=== PATIENT | male | born 1945 | race Caucasian/White ===

== ENCOUNTER 2020-09-14 12:49 | Outpatient (REF) | payer MEDICARE, OTHER, SELFPAY ==
--- OUTSIDE RECORDS SUMMARY | 2020-09-14 12:57 | XMS_ITS | Encounter Summary ---
:1945 Author Organization [facility] [place] [address] Care Team Providers Name Role Phone Pcp), No Pcp (Pt Has No Primary Care Provider Unavailable Encounter Details Date Type Department Care Team Description 06/26/2016 Hospital Encounter [facility] Meme Hwang [address] [place] [address] 5622 Millermary Christensen MD 208 17 Social History Tobacco Use Types Packs/Day Years Used Date Never Assessed Sex Assigned at Date Recorded Not on file documented as of this encounter Medications at Time of Discharge Medication Sig Dispensed Refills Start Date End Date cholecalciferol (VITAMIN D3) 2,000 unit Cap 0 10/26/2009 documented as of this encounter Plan of Treatment Not on filedocumented as of this encounter Procedures Procedure Name Priority Date/Time Associated Comments Diagnosis CYTOPATHOLOGY REPORT Routine 06/26/2016 3:07 Res ults for this PM EST procedure are i n the results section. documented in this encounter Results Cytopathology Report (06/26/2016 3:07 PM EST) Cytopathology Report [facility] ? [facility] ?Patient: REJI LOUIS ? Path# [id number] ? REFERENCE ?LABORATORIES ?[facility] MR # [id number] ?Accessioned 06/26/2016 ? Cytopathology ?Birthdate: 1945 ??( Age 70) Loc: [place] ?Consult Service ?[address] [facility] nder: M ? Spec. Taken 06/26/2016 ? [place]. ? [id number] ? [facility] Physician: ?MEME RICHARDSON M.D. ??SPECIMEN INFORMATION ?Resident Pathologist: ANURAG ESPAÑA [facility] ??Specimen 1 THYROID, FINE NEEDLE ASPIRATE, LEFT LOBE : LEFT LOWER POLE ? NODULE ??4 DQ ??Floor Covering Printer Assistant: JXMartin ??8 Smears ??INTERPRETATION AND DIAGNOSIS: ??(txb) ?? 06/27/2016 @ 03:37 pm ??1) ??THYROID, FINE NEEDLE ASPIRATE, LEFT LOBE: LEFT LOWER POLE NODULE: ??LOCATION: LEFT, INFERIOR. ??TBSRTC CATEGORY: BENIGN. ??FINAL DIAGNOSIS: ADENOMATOID NODULE. ?BRIAN Rafi MENARD M.D. ??SZA* ??*Electronic signature (06/27/2016 @ 04:06 pm) by ron I attest that ?? the above diagnosis is based upon my personal exam ination of the ?? slides (and / or other material indicated in the d iagnosis), and ?? that I have reviewed and approved this report. ?(End of Report) ? printed 07/15/2018 18:22 ??Reported by: ??[facility], Cytopathology ??[address] [place] [address] ?Final Report Signed on 06/27/2016 at 04:06 pm Specimen Other Performing Organization Address City/State/[facility] Code Phon e Number [facility]ATOMIC [facility] [address] [place] [address] LABS [facility] [address] [place] [address] documented in this encounter Visit Diagnoses Not on filedocumented in this encounter
--- OUTSIDE RECORDS SUMMARY | 2020-09-14 12:57 | XMS_ITS | Encounter Summary ---
:1945 Author Organization [facility] [place] [address] Care Team Providers Name Role Phone Pcp), No Pcp (Pt Has No Primary Care Provider Unavailable Encounter Details Date Type Department Care Team Description 06/26/2016 Hospital Encounter [facility] IVISE Jose Spencer [address] [facility] [place] [address] 5622 Angela Christensen MD 208 [phone] Social History Tobacco Use Types Packs/Day Years [...] Procedure Name Priority Date/Time Associated Comments Diagnosis PARATHYROID HORMONE, Routine 06/26/2016 10:45 Res ults for this FLUID AM EST procedure are i n the results section. documented in this encounter Results Parathyroid Hormone, Fluid (06/26/2016 10:45 AM EST) Parathyroid Hormone, 5 pg/mL [facility] Fluid Comment: Reference interval is not associated with this specimen source. ??Interpret results with caution. Result Double Checked Specimen Fluid Narrative Performed At COMMENT:FINE NEEDLE ASPIRATE / NEEDLEWASH [facility] S Performing Organization Address City/State/ZIP Code Phon e Number [facility] [address] [address] [address] [address] SOFT LABS [facility] [address] Labs [address] [place] [address] documented in this encounter Visit Diagnoses Not on filedocumented in this encounter
--- OUTSIDE RECORDS SUMMARY | 2020-09-14 12:57 | XMS_ITS | Encounter Summary ---
:1945 Author Organization [facility] [place] [address] Care Team Providers Name Role Phone Pcp), No Pcp (Pt Has No Primary Care Provider Unavailable Reason for Visit Reason Comments Routine Eye Exam Encounter Details Date Type Department Care Team Description 12/12/2018 Office Visit [facility] Carin Torres, OD [address] [place] [address] [place] [phone] [facility] [phone] [place] [address] [phone] Social History Tobacco Use Types Packs/Day Years Used Date Light Tobacco Smoker Smokeless Tobacco: Never Used Sex Assigned at Date Recorded Not on file documented as of this encounter Patient Instructions Patient InstructionsCarin Walker, RADHA - 12/12/2018 10:30 AM EDT documented in this encounter Miscellaneous Notes Assessment & Plan Note - Carin Walker OD - 12/12/2018 4:49 PM EDT Associated Problem(s): Age-related nuclear cataract, bilateralNot visually significant at this time. Discussed with findings and treatment options with patient. Recommend UV protection and no smoking. Will continue to monitor yearly. ssessment & Plan Note - Carin Walker OD - 12/12/2018 4:49 PM EDTAssociated Problem(s): Myopia of both eyes with astigmatism and presbyopiaUpdated prescription for glasses. Monitor yearly or sooner if patient notice change. ssessment & Plan Note - Carin Walker, RADHA - 12/12/2018 11:05 AM EDTAssociated Problem(s): PVD (posterior vitreous detachment), both eyesMonitor yearly. Pt understands symptoms of RD. RTC carson if symptoms occur. documented in this encounter Plan of Treatment Not on filedocumented as of this encounter Visit Diagnoses Diagnosis Myopia of both eyes with astigmatism and presbyopia - Primary PVD (posterior vitreous detachment), bot h eyes Age-related nuclear cataract, bilateral documented in this encounter
--- OUTSIDE RECORDS SUMMARY | 2020-09-14 12:57 | XMS_ITS | Encounter Summary ---
:[address] [facility] [place] [address] Care Team Providers Name Role Phone Pcp), No Pcp (Pt Has No Primary Care Provider Unavailable Reason for Visit Reason Comments comprehensive exam Encounter Details Date Type Department Care Team Description 08/09/2017 Office Visit [facility] Daja Finnegan I, OD [address] DALY [facility] [address] [place] [address] [place] [address] [phone] Social History Tobacco Use Types Packs/Day Years Used Date Light Tobacco Smoker Smokeless Tobacco: Never Used Sex Assigned at Date Recorded Not on file documented as of this encounter Progress Notes Daja Hermosillo I, RADHA - 08/09/2017 9:00 AM ESTA & P: 1. 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 Pinguecula OD; recommend UV protection 3. Cat OU; not affecting ADL, monitor 4. Dermatochalasis OS, monitor documented in this encounter Plan of Treatment Not on filedocumented as of this encounter Visit Diagnoses Diagnosis Myopia of both eyes with astigmatism and presbyopia - Primary Dermatochalasis of eyelid of left eye Nuclear cataract Senile nuclear sclerosis Pinguecula of right eye documented in this encounter
--- OUTSIDE RECORDS SUMMARY | 2020-09-14 12:57 | XMS_ITS | Encounter Summary ---
:1945 Author Organization [facility] [place] [address] Care Team Providers Name Role Phone Pcp), No Pcp (Pt Has No Primary Care Provider Unavailable Reason for Visit Reason Comments Flashes/ Floaters Encounter Details Date Type Department Care Team Description 12/17/2017 Office Visit [facility] Yung Locke MD [address] [address] [facility] [phone] MD [place] 21 287 Social History Tobacco Use Types Packs/Day Years Used Date Light Tobacco Smoker Smokeless Tobacco: Never Used Sex Assigned at Date Recorded Not on file documented as of this encounter Miscellaneous Notes Assessment & Plan Note - Yung Fowler MD - 12/17/2017 3:16 PM EDT Associated Problem(s): PVD (posterior vitreous detachment), both eyesSymptomatic posterior vitreous detachment in the left eye. No concerning pathologies seen in the peripheral retina with scleral depression. Retinal detachment precautions given. Follow-up in 6 weeks. Sooner as needed. documented in this encounter Plan of Treatment Not on filedocumented as of this encounter Visit Diagnoses Diagnosis PVD (posterior vitreous detachment), lef t documented in this encounter
--- OUTSIDE RECORDS SUMMARY | 2020-09-14 12:57 | XMS_ITS | Encounter Summary ---
:[address] [facility] [place] [address] Care Team Providers Name Role Phone Pcp), No Pcp (Pt Has No Primary Care Provider Unavailable Reason for Visit Reason Comments PVD (posterior vitreous detachment), left Encounter Details Date Type Department Care Team Description 02/25/2018 Office Visit [facility] Yung Locke MD [address] [address] Medical and S[facility]i [phone] MD [place] 21 [address] Social History Tobacco Use Types Packs/Day Years Used Date Light Tobacco Smoker Smokeless Tobacco: Never Used Sex Assigned at Date Recorded Not on file documented as of this encounter Miscellaneous Notes Assessment & Plan Note - Yung Fowler MD - 02/25/2018 11:19 AM EDT Associated Problem(s): PVD (posterior vitreous detachment), both eyesStable retinal exam in his left eye with no concerning pathologies. Retinal detachment precautions give. Follow-up in 6 months. Dilate both eyes. documented in this encounter Plan of Treatment Not on filedocumented as of this encounter Visit Diagnoses Diagnosis PVD (posterior vitreous detachment), lef t documented in this encounter
--- OUTSIDE RECORDS SUMMARY | 2020-09-14 12:57 | XMS_ITS | Encounter Summary ---
:1945 Author Organization [facility] [place] [address] Care Team Providers Name Role Phone Pcp), No Pcp (Pt Has No Primary Care Provider Unavailable Reason for Visit Reason Comments PVD (posterior vitreous detachment), left Encounter Details Date Type Department Care Team Description 08/18/2018 Office Visit [facility] Yung Locke MD [address] [phone] Medical and S[facility] [phone] MD [place] 21 [address] Social History Tobacco Use Types Packs/Day Years Used Date Light Tobacco Smoker Smokeless Tobacco: Never Used Sex Assigned at Date Recorded Not on file documented as of this encounter Miscellaneous Notes Assessment & Plan Note - Yung Fowler MD - 08/18/2018 2:39 PM EST Associated Problem(s): PVD (posterior vitreous detachment), both eyesRight eye: a posterior vitreous detachment has developed since his last visit; no symptoms; unremarkable peripheral retinal exam Left eye: stable Retinal detachment precautions given Follow-up in 1 year; dilate both eyes documented in this encounter Plan of Treatment Not on filedocumented as of this encounter Visit Diagnoses Diagnosis PVD (posterior vitreous detachment), bot h eyes documented in this encounter
--- OUTSIDE RECORDS SUMMARY | 2020-09-14 12:57 | XMS_ITS | Clinical Summary ---
:1945 Author Organization [facility] [place] [address] Care Team Providers Name Role Phone Pcp), No Pcp (Pt Has No Primary Care Provider Unavailable Allergies Active Allergy Reactions Severity Noted Date Comments Penicillins 08/09/2017 Medications Medication Sig Dispensed Refills Start Date End Date Status amLODIPine (NORVASC) 10 0 06/06/2017 Active MG tablet azithromycin (ZITHROMAX) 0 08/07/2017 Active 250 MG tablet benzonatate (TESSALON 0 08/07/2017 Active PERLES) 100 MG capsule lisinopril (PRINIVIL, Take by mouth 3 07/27/2018 Active ZESTRIL) 20 MG tablet daily. aspirin 81 MG EC tablet take 1 tablet 0 Active (81MG) by oral route every day cholecalciferol (VITAMIN 0 10/26/2009 Active D3) 2,000 unit Cap Active Problems Problem Noted Date Myopia of both eyes with astigmatism and presbyopia Last Assessment & Plan: Updated prescription for glasses. Monitor yearly or sooner if patient notice change. Age-related nuclear cataract, bilateral 12/12/2018 Last Assessment & Plan: Not visually significant at this time. Discussed with findings and treatment options with patient. Recommend UV protection and no smoking. Will continue to monitor yearly. PVD (posterior vitreous detachment), both eyes 018 Overview: Symptomatic left eye 12/2017 no longer symptomatic for flashes, stabl e floaters 12/24 Last Assessment & Plan: Monitor yearly. Pt understands symptoms of RD. RTC carson if symptoms occur. Social History Tobacco Use Types Packs/Day Years Used Date Light Tobacco Smoker Smokeless Tobacco: Never Used Sex Assigned at Date Recorded Not on file Plan of Treatment Health Maintenance Due Date Last Done Comments COLOGUARD 1945 COLONOSCOPY 1945 COLORECTAL CANCER SCREENING 1947 CT COLONOGRAPHY 1945 FECAL OCCULT BLOOD TESTING 1945 HEPATITIS C SCREENING 1945 MEDICARE ANNUAL WELLNESS VISIT 1945 SIGMOIDOSCOPY 1945 DTAP/TDAP/TD VACCINES (1 - 1966 Tdap) SHINGLES VACCINATION 1997 (Shingrix) (1 of 2) ABDOMINAL AORTIC ANEURYSM 2012 (AAA) SCREEN PNEUMOCOCCAL VACCINES AGE 65+ 2012 (1 of 1 - PPSV23) INFLUENZA VACCINE (#1) 2020 04/08/2017, 05/17/2015, 05/25/2014 HEPATITIS A VACCINES Aged Out No longer e ligible based on patient's age to complete this to [facility] HEPATITIS B VACCINES Aged Out No longer e ligible based on patient's age to complete this to pic Insurance Payer Benefit Plan Subscriber ID Effective Phone Address Typ e / Group Dates MEDICARE MEDICARE A [id number] 2012-Pres [phone] [employer] Med icare AND B ent [id number] SOLUTIONS (ATTN: PART A) [address] [place] [address] COMMERCIAL [id number] Effective for Inde mnity OTHER all dates Reji Perla Personal/Family Self 1945 [address] [address] (Home) [place] [address] Advance Directives Documents on File Type Date Recorded Patient Financial Services Manager Explanati on Advance Directives-Living Will 06/18/2016 7:52 AM
--- OUTSIDE RECORDS SUMMARY | 2020-09-14 12:58 | XMS_ITS | Encounter Summary ---
:1945 Author Organization [facility] [place] [address] Care Team Providers Name Role Phone Pcp), No Pcp (Pt Has No Primary Care Provider Unavailable Reason for Referral Nuclear Medicine (Routine) Status Reason Specialty Diagnoses / Procedures Referred By Lauren hollyerred To Contact Contact Closed Specialty Radiology Diagnoses Primary hyperparathyroidism Leo, [facility] Peds Services Procedures NM Parathyroid Spect CT Jose Aguilar MD Nuc Med Required [address] [place] [address] [facility] Phone: [address] [place] [phone] [place] Fax: [phone] Reason for Visit Nuclear Medicine (Routine) Status Reason Specialty Diagnoses / Procedures Referred By Lauren eferred To Contact Contact Closed Specialty Radiology Diagnoses Primary hyperparathyroidism Jerad, [facility] Peds Services Procedures NM Parathyroid Spect CT Jose Aguilar MD Nuc Med Required [address] [facility] MD [address] [facility] Phone: [address] [place] [phone] MD [place] Encounter Details Date Type Department Care Team Description 06/18/2016 [facility] Leo, Primary Encounter Radiology - Jose Aguilar MD hyperparathyroidism Pediatric Nuc Med 56[address] Angela Christensen MD [facility] [address] [place] [phone] MD [place] [phone] (Fax) [phone] Social History Tobacco Use Types Packs/Day Years [...] encounter Procedures Procedure Name Priority Date/Time Associated Diagnosis Comme nts NM PARATHYROID Routine 06/18/2016 10:57 Primary Results f or this SPECT CT AM EST hyperparathyroidism procedur e are in the results section. documented in this encounter Results NM Parathyroid Spect CT (06/18/2016 10:57 AM EST) Specimen Impressions Performed At IMPRESSION: [facility] 1. Dual-phase Tc-99m sestamibi SPECT-CT scan of the pa rathyroids demonstrates a focal region of asymmetric posterior ex tension of radiotracer activity immediately left lateral to the e sophagus at the level of the midportion of the left thyr oid lobe. A small ovoid soft tissue density nodule measuring appro ximately 6 mm is identified at this level on the CT portion of the exam . Findings are suspicious for parathyroid adenoma in this location. N o scintigraphic evidence of parathyroid adenoma posterio r to the right thyroid or in ectopic locatio ns. 2. Punctate pulmonary nodule laterally within the midd le lobe. In the absence of prior cross-sectional imaging of the chest documenting stability, according to Fleischner Society criteria a CT follow-up in 12 months would be recommended if the pa tient is considered at high risk for pulmonary m alignancy. Images and interpretation personally reviewed by: VIJI PENNINGTON DO Images and interpretation personally rev iewed by: LINUS VINCENT MD Narrative Performed At This result has an attachment that is no t available. RESULT: Nuclear medicine parathyroid exam with SPECT-CT 06/18/2016. [facility] HISTORY: 70-year-old male with primary h yperparathyroidism. Parathyroid hormone and calcium levels are not specified. INDICATION:This study is performed to ev aluate for a parathyroid adenoma in a patient with a diagnosis of primary hyperparathyroidism. RADIOPHARMACEUTICAL: ??25.9 millicuries Tc-99m sestami bi (Cardiolite), IV. TECHNIQUE:Fifteen minutes after radiotra cer administration, SPECT-CT images from the base of the skull to the mid-thorax were acquired (early images). ??Two hours after radiotracer administration, a sec ond set of SPECT-CT images from the base of the skull to the mid-thorax were acquired (delayed images). SPECT/CT system equipped [id number] ice CT for attenuation correction and gross localization. FINDINGS: ?? Early images: Physiologic radiotracer up take is identified within the bilateral thyroid glands. There is asymmetric posterior extension of radiotracer activity seen at the level of the midportion of the left thyroid lobe. No abnormal radiotracer uptake is identified along the length of either carotid sheath or within the included mediastinum. There is physiologic radiotracer distrib ution in the salivary glands, the myocardium, and muscle. Delayed images: There is persistent asym metric posterior extension of radiotracer activity seen at the level of the midportion of the left thyroid lobe, similar in intensity to that remaining within the bilateral thyroid lobes. 6 mm ovoid nodular focus of soft tissue density material is ident ified just left lateral to the esophagus at this level on nondiagnostic CT imaging (series 1, image 31). There is no abnormal radiotracer uptake identified along the length of either carotid sheath or within the included mediastinum. There is physiologic radiotracer distrib ution in the salivary glands, the myocardium, and muscle. Review of the attenuation-correction CT, which is low resolution and of limited diagnostic value, reveals a punctate subpleural nodule laterally within the middle lobe (series 1, image 60) and degenerat agatha arthropathy within the included thoracic spine. Procedure Note Interface, [facility] Rad Results Incoming - 12:48 PM EST RESULT: Nuclear medicine parathyroid exam with SPECT-CT 06/18/2016. HISTORY: 70-year-old male with primary h yperparathyroidism. Parathyroid hormone and calcium levels are not specified. INDICATION:This study is performed to ev aluate for a parathyroid adenoma in a patient with a diagnosis of primary hyperparathyroidism. RADIOPHARMACEUTICAL: 25.9 millicuries T c-99m sestamibi (Cardiolite), IV. TECHNIQUE:Fifteen minutes after radiotra cer administration, SPECT-CT images from the base of the skull to the mid-thorax were acquired (early images). Two hours after radiotracer administration, a second set of SPECT-CT images from the base of the sku ll to the mid-thorax were acquired (delaye d images). SPECT/CT system equipped [id number] ice CT for attenuation correction and gross localization. FINDINGS: Early images: Physiologic radiotracer up take is identified within the bilateral thyroid glands. There is asymmetric posterior extension of radiotracer activity seen at the level of the midportion of the left thyroid lobe. No abnormal radiotracer up take is identified along the length of either carotid sheath or within the included mediastinum. There is physiologic radiotracer distrib ution in the salivary glands, the myocardium, and muscle. Delayed images: There is persistent asym metric posterior extension of radiotracer activity seen at the level of the midportion of the left thyroid lobe, similar in intensity to that remaining within the bilateral thyroid lobes. 6 mm ovoid nodular focus of soft tissue density material is ident ified just left lateral to the esophagus at this level on nondiagnostic CT imaging (series 1, image 31). There is no abnormal radiotracer uptake identified along the length of either carotid sheath or within the included mediastinum. There is physiologic radiotracer distrib ution in the salivary glands, the myocardium, and muscle. Review of the attenuation-correction CT, which is low resolution and of limited diagnostic value, reveals a punctate subpleural nodule laterally within the middle lobe (series 1, image 60) and degenerative arthropathy within the included thoracic spine. IMPRESSION: 1. Dual-phase Tc-99m sestamibi SPECT-CT scan of the parathyroids demonstrates a focal region of asymmetric posterior extension of radiotracer activity immediately left lateral to the esophagus at the level of the midportion of the left thyr oid lobe. A small ovoid soft tissue density nodule m easuring approximately 6 mm is identified at this level on the CT portion of the exam. Findings are suspicious for parathyroid adenoma in this location. No scintigraphic evidence of parathyroid adenoma posterio r to the right thyroid or in ectopic locatio ns. 2. Punctate pulmonary nodule laterally w ithin the middle lobe. In the absence of prior cross-sectional imaging of the chest documenting stability, according to Fleischner Society criteria a CT follow-up in 12 months would be recommended if the patie nt is considered at high risk for pulmonary m alignancy. Images and interpretation personally rev iewed by: IMTIAZ PENNINGTON DO Images and interpretation personally rev iewed by: LINUS VINCENT MD Performing Organization Address City/State/ZIP Code Phon e Number [facility] documented in this encounter Visit Diagnoses Diagnosis Primary hyperparathyroidism documented in this encounter
--- OUTSIDE RECORDS SUMMARY | 2020-09-14 12:58 | XMS_ITS | Encounter Summary ---
:1945 Author Organization [facility] [place] [address] Care Team Providers Name Role Phone Pcp), No Pcp (Pt Has No Primary Care Provider Unavailable Reason for Visit Nuclear Medicine (Routine) Status Reason Specialty Diagnoses / Procedures Referred By Lauren eferred To Contact Contact Closed Specialty Radiology Diagnoses Primary hyperparathyroidism [facility] Peds Services Procedures NM Parathyroid Spect CT Jose Aguilar MD Nuc Med [facility] [address] MD [facility] Phone: [address]th [place] [phone] [place] Fax: [phone] Encounter Details Date Type Department Care Team Description 06/18/2016 Hospital Encounter [facility] Radiology Jose Bailey - Pediatric [place] Aguilar MD [address] [facility] [address] [facility] [address] [facility] [phone] [place] [phone] Social History Tobacco Use Types Packs/Day Years [...] the results section. documented in this encounter Visit Diagnoses Not on filedocumented in this encounter Administered Medications Inactive Administered Medications - up to 3 most recent administrations Medication Order MAR Action Action Date Dose Rate Site Tc-99m sestamibi Given 06/18/2016 8:30 AM 25.9 millicuries Left Arm injection 25.9 peter EST Curie 25.9 millicurie, Intravenous, IMG once as needed, Imaging isotope, Starting 06/18/16 at 1003, For 1 dose documented in this encounter
[2020-09-14 13:51] LABS: Uric Acid 9.3 mg/dL (3.5-7.2)
== END 2020-09-14 12:50 | disposition home or self-care (01) ==
LOC: LBN 12:49
PROVIDERS: Visit Provider Nurse Practitioner Family
DX: M10.9 Gout, unspecified (principal)
CPT/HCPCS: 84550

== ENCOUNTER 2020-09-27 01:44 | Outpatient (CLI) | payer MEDICARE, OTHER, SELFPAY ==
--- NOTE | 2020-09-27 10:47 | DI.RAD_ITS ---
EXAM: XR SHOULDER RT COMPLETE 2+V CLINICAL HISTORY: right shoulder pain,m25.511. TECHNIQUE: 2D digital imaging was performed. COMPARISON: No exams were available for comparison FINDINGS: Moderate degenerative changes are seen at the acromioclavicular and glenohumeral joints. Hypertrophi c changes are seen at the greater tuberosity. There are calcifications adjacent to the greater tuber osity suggesting calcific tendinitis. There is a well corticated osseous density lateral to the acro mion which appears chronic. No acute fracture or dislocation. Soft tissues are unremarkable. IMPRESSION: Degenerative changes of the right shoulder. DATA REPOSITORY: RADIATION DOSE DELIVERED:
--- NOTE | 2020-09-27 10:47 | DI.RAD_ITS ---
EXAM: XR FINGER RT INDEX CLINICAL HISTORY: right index finger swelling PIP joint,m79.89. TECHNIQUE: 2D digital imaging was performed. COMPARISON: No exams were available for comparison FINDINGS: There are degenerative changes seen in the right hand. The findings are marked at the PIP and DIP jasiel ints of the right index finger where there is joint space narrowing and hypertrophy present. There i s soft tissue swelling of the right index finger. No acute fracture or dislocation. No radiopaque f oreign bodies are seen in the soft tissues. No erosions are seen. The MCP joint of the right index finger is unremarkable. 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 DATA REPOSITORY: RADIATION DOSE DELIVERED:
== END 2020-09-27 02:04 ==
PROVIDERS: Visit Provider Nurse Practitioner Family
DX: M19.011 Primary osteoarthritis, right shoulder (principal); M19.041 Primary osteoarthritis, right hand
CPT/HCPCS: 73030; 73140

== ENCOUNTER 2021-01-26 08:27 | Outpatient (CLI) | payer MEDICARE, OTHER, SELFPAY ==
[2021-01-26 12:57] LABS: ALT 40 U/L (16-63); AST 23 U/L (15-37); Albumin 4.1 g/dL (3.4-5.0); Alkaline Phosphatase 61 U/L (46-116); Anion Gap 12.1 mmol/L (3-11); BUN 16 mg/dL (7-18); Bilirubin, Total 0.5 mg/dL (0.2-1.0); CO2 23.9 mmol/L (21.0-32.0); CREATININE 0.9 mg/dL (0.70-1.30); Calcium 9.3 mg/dL (8.5-10.1); Calculated LDL 167 mg/dL (<100); Chloride 105 mmol/L (98-107); Cholesterol 243 mg/dL (<200); Glucose 90 mg/dL (74-106); HDL Cholesterol 65 mg/dL (40-60); Potassium 4.7 mmol/L (3.5-5.1); Sodium 141 mmol/L (136-145); TSH 1.98 uIU/mL (0.36-3.74); Triglyceride 57 mg/dL (<150)
[2021-01-26 21:33] LABS: PSA, Screening 0.5 ng/mL (0.0-6.5)
== END 2021-01-26 08:28 | disposition home or self-care (01) ==
LOC: LBO 08:31
PROVIDERS: PCP Nurse Practitioner Family; Visit Provider Nurse Practitioner Family
DX: E78.2 Mixed hyperlipidemia (principal); I10 Essential (primary) hypertension; N40.0 Benign prostatic hyperplasia without lower urinary tract symptoms; Z12.5 Encounter for screening for malignant neoplasm of prostate
CPT/HCPCS: 36415; 80053; 80061; 84153; 84443

== ENCOUNTER 2022-03-06 03:31 | Outpatient (CLI) | payer MEDICARE, OTHER, SELFPAY ==
[2022-03-06 08:13] LABS: CREATININE 1.1 mg/dL (0.70-1.30); Calculated LDL 143 mg/dL (<100); Cholesterol 225 mg/dL (<200); Estimated GFR 70.44 (mL/min/1.73m2); HDL Cholesterol 73 mg/dL (40-60); Potassium 4.6 mmol/L (3.5-5.1); Triglyceride 46 mg/dL (<150)
== END 2022-03-06 03:32 | disposition home or self-care (01) ==
LOC: LBO 03:31
PROVIDERS: PCP Nurse Practitioner Family; Visit Provider Nurse Practitioner Family
DX: I10 Essential (primary) hypertension (principal); E78.2 Mixed hyperlipidemia
CPT/HCPCS: 36415; 80061; 82565; 84132

== ENCOUNTER → 2022-10-24 11:39 | Outpatient (BNVA) | payer MEDICARE, OTHER, SELFPAY | PROVIDERS: PCP Nurse Practitioner Family; Referring Provider Nurse Practitioner Family; Visit Provider Surgery | DX: K64.8 Other hemorrhoids (principal) | CPT/HCPCS: 46083; 99203 ==

== ENCOUNTER 2023-02-28 04:15 | Outpatient (CLI) | payer MEDICARE, OTHER, SELFPAY ==
[2023-02-28 09:51] LABS: CREATININE 0.9 mg/dL (0.70-1.30); Calculated LDL 123 mg/dL (<100); Cholesterol 227 mg/dL (<200); Estimated GFR 89.07 (mL/min/1.73m2); HDL Cholesterol 86 mg/dL (40-60); Potassium 4.5 mmol/L (3.5-5.1); Triglyceride 91 mg/dL (<150)
== END 2023-02-28 04:16 | disposition home or self-care (01) ==
LOC: LBO 04:15
PROVIDERS: PCP Nurse Practitioner Family; Visit Provider Nurse Practitioner Family
DX: I10 Essential (primary) hypertension (principal); E78.5 Hyperlipidemia, unspecified
CPT/HCPCS: 36415; 80061; 82565; 84132

== ENCOUNTER → 2023-06-13 01:36 | Outpatient (CLI) | payer MEDICARE, OTHER, SELFPAY ==
--- NOTE | 2023-06-13 07:30 | DI.RAD_ITS ---
Exam(s) XR HIP RT COMPLETE AP PELVIS EXAM: XR HIP RT COMPLETE AP PELVIS CLINICAL HISTORY: Worsening pain rt hip, m25.551. TECHNIQUE: 2D digital imaging was performed. Two views COMPARISON: No exams were available for comparison FINDINGS: BONES: No acute fracture is present. No bony destructive lesion is seen. JOINTS: No dislocation present. Hip joint spaces are maintained. Mild acetabular spurring. SI seymour nts and pubic symphysis are unremarkable. SOFT TISSUE: Normal. IMPRESSION: No acute abnormality. Mild degenerative changes. DATA REPOSITORY: RADIATION DOSE DELIVERED:
== END ==
PROVIDERS: PCP Nurse Practitioner Family; Visit Provider Nurse Practitioner Family
DX: M25.551 Pain in right hip (principal)
CPT/HCPCS: 73502

== ENCOUNTER → 2023-06-24 09:52 | Outpatient (BNVA) | payer MEDICARE, OTHER, SELFPAY | PROVIDERS: PCP Nurse Practitioner Family; Referring Provider Nurse Practitioner Family | DX: M16.11 Unilateral primary osteoarthritis, right hip (principal) | CPT/HCPCS: 99213 ==

== ENCOUNTER → 2023-06-27 09:53 | Outpatient (BNVA) | payer MEDICARE, OTHER, SELFPAY | PROVIDERS: PCP Nurse Practitioner Family; Referring Provider Nurse Practitioner Family; Visit Provider Physician Assistant | DX: M16.11 Unilateral primary osteoarthritis, right hip (principal) | CPT/HCPCS: 20611; J1040 ==

== ENCOUNTER 2023-12-13 09:50 | Outpatient (CLI) | payer MEDICARE, OTHER, SELFPAY ==
--- NOTE | 2023-12-13 08:50 | DI.RAD_ITS ---
Exam(s) XR KNEE LT 4V+ EXAM: XR KNEE LT 4V+ CLINICAL HISTORY: LEFT KNEE PAIN. TECHNIQUE: 2D digital imaging was performed of the left knee. Four images were obtained. Merchant, AP, lateral and PA tunnel views were obtained. COMPARISON: No exams were available for comparison FINDINGS: BONES: No acute fracture is present. No bony destructive lesion is seen. There are enthesophytes at the anterior patella. JOINTS: There is mild narrowing of the medial femoral tibial joint space. Small osteophytes are seen in the medial femoral tibial and patellofemoral joint. There is a joint effusion. Chondrocalcinosi s is seen in the medial femoral tibial and lateral femoral tibial joint. This can be seen with CPPD arthropathy. Calcifications are seen in the superior joint space which may represent loose bodies. SOFT TISSUE: Normal. IMPRESSION: 1. Bedy-fz-sbedmuii arthrosis of the knee. 2. Chondrocalcinosis which can be seen with CPPD arthropathy. 3. Joint effusion. DATA REPOSITORY: RADIATION DOSE DELIVERED:
== END 2023-12-13 09:51 | disposition home or self-care (01) ==
LOC: DIORS 09:51
PROVIDERS: PCP Nurse Practitioner Family; Referring Provider Nurse Practitioner Family
DX: M11.262 Other chondrocalcinosis, left knee
CPT/HCPCS: 20610; J1010; 73564

== ENCOUNTER 2024-03-12 02:31 | Outpatient (CLI) | payer MEDICARE, OTHER, SELFPAY ==
--- NOTE | 2024-03-12 06:30 | DI.CTLCSR_ITS ---
Exam(s) CT CHEST LUNG CANCER SCREEN EXAM: CT CHEST LUNG CANCER SCREEN CLINICAL HISTORY: Screening for lung cancer,CURRENT SMOKER, F17.210 TECHNIQUE: Imaging Protocol: Axial computed tomography images with coronal and sagittal reformatted images were created and reviewed COMPARISON: No exams were available for comparison FINDINGS: Tracheobronchial tree: Patent where visualized. No bronchiectasis. Pulmonary parenchyma: No consolidation or dominant measurable mass. No architectural distortion. Ther e are calcified granuloma in the lungs. Lung Nodules: There is a 2 mm nodule in the lateral aspect of the right middle lobe (series 2, image 203). There is a 3 mm nodule in the left lower lobe (series 3, image 139). Mediastinum and Sharon: No dominant adenopathy or fluid collection. The esophagus is unremarkable. Thyroid gland: Unremarkable. Lymph nodes: Unremarkable. Pleura: No effusion or pneumothorax. Pleural calcifications are seen suggesting prior asbestos exposu re. Heart: The heart is not dilated. Coronary artery calcifications are present. No pericardial effusion . Aorta: Thoracic aorta non-dilated.Atherosclerotic calcification is present. Upper abdomen: There is diverticulosis seen in the colon. Soft Tissues: Unremarkable. Bones: Within normal limits. IMPRESSION: Two pulmonary nodules as described above. Lung RADS Cat 2 - Benign Appearance / Behavior: Nodules with a very low likelihood of becoming a clin ically active cancer due to size or lack of growth Lung-RADS 1.0 CATEGORIES: Category 0 - Prior chest CT exam(s) being located for comparison. Category 1 - Annual screening in 12 months. No nodules or definitely benign nodules. Category 2 - Annual screening in 12 months. Benign appearance. Nodules with low likelihood of becomin g active cancer. Category 3 - 6-month follow-up. Probably benign. Short-term follow-up suggested. Nodules with low lik elihood of becoming active cancer. Category 4A - 3-month follow-up and CT/PET if >8 mm in size. Suspicious finding. Findings which requi re additional testing. Category 4B - Findings which require additional testing and tissue sampling. Suspicious finding. Category 4X - Category 3 or 4 nodules with additional features or imaging findings that increases the suspicion of malignancy. Modifier S- Potentially clinically significant finding. (Non lung cancer) RADIATION DOSE DELIVERED: 40.3mGy.cm Total DLP 40.3mGy.cmTotal DLP DATA REPOSITORY: All CT scans at this facility are submitted to the National Radiology Data Registry (NRDR) Dose Index Registry (DIR) with the [employer] (ACR). RADIATION OPTIMIZATION: All CT scans at this facility use at least one of these dose optimization te chniques: automated exposure control; mA and/or kV adjustment per patient size (includes targeted exa ms where dose is matched to clinical indication); or iterative reconstruction.
== END 2024-03-12 02:51 ==
LOC: DI 02:32
PROVIDERS: PCP Nurse Practitioner Family; Visit Provider Nurse Practitioner Family
DX: F17.210 Nicotine dependence, cigarettes, uncomplicated (principal); Z12.2 Encounter for screening for malignant neoplasm of respiratory organs
CPT/HCPCS: 71271

== ENCOUNTER 2024-05-01 01:28 | Outpatient (CLI) | payer MEDICARE, OTHER, SELFPAY ==
[2024-05-01 10:05] LABS: Potassium 4.4 mmol/L (3.5-5.1)
== END 2024-05-01 01:29 | disposition home or self-care (01) ==
LOC: LBO 01:29
PROVIDERS: PCP Nurse Practitioner Family; Visit Provider Nurse Practitioner Family
DX: I10 Essential (primary) hypertension (principal); L30.9 Dermatitis, unspecified
CPT/HCPCS: 36415; 82565; 84132

== ENCOUNTER → 2024-06-18 13:10 | Outpatient (BNVA) | payer MEDICARE, OTHER, SELFPAY | PROVIDERS: PCP Nurse Practitioner Family; Referring Provider Nurse Practitioner Family; Visit Provider Physical Therapy Assistant | DX: Z12.11 Encounter for screening for malignant neoplasm of colon (principal); I10 Essential (primary) hypertension ==

== ENCOUNTER 2024-07-13 07:37 | Day surgery (SDC) | payer MEDICARE, OTHER, SELFPAY ==
--- NOTE | 2024-07-12 13:57 | W.PM.DSUDISC ---
Date of service: 07/13/24 Discharge Plan Disposition Patient Disposition: Home Condition: Good Discharge Details Reason For Visit: screening colonoscopy Attending Provider: Osmar Shirley Primary Care Provider: Terry Savage Home Meds and New Rx's Prescriptions: Continued fluticasone propionate [Flonase Allergy Relief] 50 mcg/actuation spray,suspension 2 spray intranasal DAILY PRN Rx Instructions: administer into each nostril cholecalciferol (vitamin D3) 50 mcg (2,000 unit) capsule 50 mcg PO DAILY aspirin [Adult Aspirin Regimen] 81 mg tablet,delayed release (DR/EC) 81 mg PO DAILY losartan 25 mg tablet 25 mg PO DAILY Qty: 90 3RF Discontinued polyethylene glycol 3350 17 gram/dose powder 17 g PO ONCE Qty: 238 0RF Rx Instructions: Take per colonoscopy instructions provided by ordering providers office Discharge Instructions Instructions: Colon polyps, Diverticulosis Additional Instructions: Reji, it was great seeing you today, and am glad you are out and about. Hopefully you will make a quick recovery from the colonoscopy and feel wonderful this afternoon. Everything went very smoothly today. I did find, and removed 3 polyps today. These will all be sent off to the pathologist for their review since polyps to come in different types, and while and respectful of your decision that that maybe this is your last colonoscopy, at least if I get the information regarding the nature of these polyps, I can offer some insight regarding your overall colon cancer risk for the rest of your lifetime. Incidentally, he also have a little bit of diverticulosis. These are small weak spots in the muscular part of the colon wall. This causes the inside lining to pooch or pocket outwards. Sometimes this can be quite painful for patients usually experienced as discomfort on the left lower side of the abdomen. Hopefully, years will never bother you. I do suggest staying well-hydrated, avoiding constipation, and incorporating plenty of fiber into your regular diet. If you need anything, or have any questions at all, please do not hesitate to ask at any point. 1. If tolerated, consume a soft, low fiber diet for 1-2 days. 2[address] Do not drive, drink alcohol, operate machinery, make critical decisions, or do activities that require coordination or balance for 24 hours. 3. Because air was put into your colon during the procedure, expelling air from your rectum (passing gas or farting) is normal. 4. You may not have a bowel movement for 1-3 days because of the colonoscopy prep. This is normal. 5. Go directly to the emergency room if you notice any of the following: Develop chills (warm to touch), or if you have a thermometer and your temperature is above 101 Difficulty breathing or difficultly swallowing Persistent vomiting Severe abdominal pain, other than gas cramps Severe chest pain Black, tarry stools Any bleeding ? exceeding one tablespoon 6. Call your physician if the site where your intravenous was started becomes red, swollen, painful, and warm to touch. 7. Your physician has reviewed your pre-procedure medications. Please continue to take those medications as previously ordered. You will be given specific information/education regarding any changes to your medications before leaving. Stand Alone Forms: Anesthesia Discharge Carlos Joyce (DSU) Activity:: Activity as Tolerated Diet:: As Tolerated Discharge Orders Discharge Orders: Discharge Order (Routine); Ordered 07/12/24 Ordered By: Osmar Shirley DS: Diagnosis Discharge Diagnosis (1) Encounter for screening colonoscopy: Status: Acute Asessment and Plan: Follow-up on polypectomy results
--- NOTE | 2024-07-12 14:04 | COLE_ITS ---
Date of service: 07/13/24 Time of Service: 10:01 Colonoscopy Report Date of procedure: 07/13/24 Pre-op diagnosis general: screening colonoscopy Post-op diagnosis procedure note: other (Diverticulosis, colon polyps) Procedure: colonoscopy with polypectomy Surgeon: Osmar Shirley Anesthesia Type: General:No Airway Estimated blood loss (mL): 5 Pathology: other (0.25 cm flat polyp at 75 cm, 0.25 cm flat polyp at 60 cm x 2) Complications: None Disposition: same day Indications: Reji is a 78 year old man who needs his next screening colonoscopy Prep: Miralax/Dulcolax Procedure Start Time: :06 Procedure End Time: 09:11 Retraction Time: 10 Findings: Sigmoid diverticulosis, 0.25 cm flat polyp at 75 cm, 0.25 cm flat polyp at 60 cm x 2 Procedure Description: After the induction of anesthesia, and with the patient in left lateral decubitus position, I began by performing an external anorectal exam.? Perineum and skin were normal, as was the anal verge.? There was no evidence of external hemorrhoids.? Next, I performed a digital rectal exam.? I did not appreciate any abnormal findings.? Next, I advanced a colonoscope into the rectal vault.? I performed retroflexion.? This appeared normal.? Using insufflation, I then advan karthikeyan the colonoscope beyond the rectal folds and into the sigmoid colon before advancing towards the cecum.? There is sigmoid diverticulosis.? The scope was noted to be in the cecum by identification of the ileocecal valve and appendiceal orifice.? I then began withdrawing the colonoscope using repeated irrigation as necessary for full evaluation of the colonic mucosa. Around 75 cm from the anal verge I identified a 0.25 cm polyp. ?It appeared flat in character. ?I was able to remove this with a cold forcep polypectomy. ?I examined the site, and there was minimal bleeding. ?Once this was completed, I continued to withdraw the scope and examine the remainder of the colonic mucosa.? 2 more polyps were found immediately adjacent to 1 another at 60 cm from the anal verge. Each of these polyps was about 0.25 cm and flat. I removed each of these polyps with cold forceps, and sent them as a single specimen. Once the scope was withdrawn to the level of the rectum, great care was taken to examine portions of the rectal folds.? Finally, the scope was withdrawn and the patient was brought to the same-day surgery recovery unit as the anesthetic wore off. ?The findings and instructions were shared with the patient prior to discharge. Headrick Bowel Prep Headrick Bowel Prep Right Colon: 3 Left Colon: 3 Transverse Colon: 3 Total Score: 9
[2024-07-13 08:11] VITALS: BP 137/82; PULSE 74; RESP 16; TEMP 36.5; O2SAT 99
[2024-07-13] MEDS: Lactated Ringers 1,000 ML 80 ML IV (08:23)
--- NOTE | 2024-07-13 08:35 | W.ANESPRE ---
General Info Date of Service Date Performed: 07/13/24 Height: 5 ft 7.75 in Weight: 81 kg Body Mass Index (BMI): 27.3 Surgical Procedure: Operation Date: 07/13/24 09:05 Proposed Procedure Side Surgeon p Olga Lidia Shirley MD Meds Allergies and Home Medications Allergies Allergy/AdvReac Type Severity Reaction Status Date / Time Penicillins Allergy Mild unknown Verified 07/13/24 08:09 Home Medication ?Medication ?Instructions ?Recorded aspirin 81 mg tablet,delayed 81 mg PO DAILY 01/16/21 release (Adult Aspirin Regimen) cholecalciferol (vitamin D3) 50 50 mcg PO DAILY 06/22/24 mcg (2,000 unit) capsule fluticasone propionate 50 2 spray intranasal DAILY PRN 06/22/24 mcg/actuation nasal spray,suspension (Flonase Allergy Relief) losartan 25 mg tablet 25 mg PO DAILY #90 tabs 06/22/24 Current Visit Medications: Current Medications Generic Name Dose Route Start Last Admin Trade Name Freq PRN Reason Stop Dose Admin Ringer's Solution 1,000 mls @ 80 mls/hr 07/13/24 06:00 07/13/24 08:23 IV 08/09/24 23:59 80 mls/hr INFUSION CRAIG Administration IV Miscellaneous Supplies 1 each 07/13/24 06:00 Iv Access IV 08/09/24 23:59 DIRECTED CRAIG Ondansetron HCl 4 mg 07/12/24 14:07 Ondansetron 4 Mg/2 Ml Vial IVP 08/11/24 14:06 Q4H PRN PRN Nausea / Vomiting Sodium Chloride 0 ml 07/13/24 06:00 Normal Saline Flush 10 Ml Syr IV 08/09/24 23:59 PRN PRN Sodium Chloride 0 ml 07/13/24 06:00 Normal Saline 10 Ml Vial IJ 08/09/24 23:59 DIRECTED PRN Sterile Water 0 ml 07/13/24 06:00 Water,Injection,Sterile 10 Ml Vial IJ 08/09/24 23:59 DIRECTED PRN PFSH Active Problems Active Problems: Problem Status Onset Code Encounter for screening colonoscopy Acute Z12.11 Eczema Acute L30.9 Throat clearing Acute R09.89 Sinus pressure Acute J34.89 Sinus drainage Acute J34.89 Chondrocalcinosis of left knee Acute M11.262 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 Right hip pain Acute M25.551 Acute hemorrhoid Acute K64.9 Benign mole Acute D22.9 Hyperlipidemia Acute E78.5 Gout Chronic M10.9 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 Hypercalcemia Acute E83.52 Benign hypertension Acute I10 Surgical History Surgical History Hx of parathyroidectomy H/O repair of right rotator cuff (~2009) left side done as well- unknown year H/O arthroscopy of right knee (~01/16/10) osteoarthritis, lateral meniscal tear History of arthroplasty of right shoulder (~03/20/10) joint osteoarthritis, degenerative labral tears, subacromial bursitis Tobacco Smoking/Tobacco Use Status: Current-Occasional Tobacco Type: cigars Passive smoking exposure: Yes Second hand exposure: Yes Alcohol Alcohol Intake: current Alcohol intake frequency: 3 or more drinks per day Alcohol type: beer and wine Substance Use Substance use: Never Substance use type: does not use Vital Signs and Lab Results Vital Signs Most Recent Vital Signs in EMR: Most Recent Vital Signs Temp Pulse Resp BP Pulse Ox 36.5 C 74 16 137/82 99 07/13/24 08:11 07/13/24 08:11 07/13/24 08:11 07/13/24 08:11 07/13/24 08:11 Lab Results Blood Type / Crossmatch: No Data to Display Complete Blood Count: No Data to Display Complete Metabolic Panel: No Data to Display Liver Function Panel: No Data to Display Coagulation Panel: No Data to Display Cardiac Panel: No Data to Display Arterial Blood Gas: No Data to Display Venous Blood Gas: No Data to Display Pancreas Panel: No Data to Display Thyroid Panel: No Data to Display Infectious Disease: No Data to Display Blood Cultures: No Data to Display Toxicology Panel: No Data to Display Anesthesia Assessment and Plan Anesthesia History Personal History: No History of Anesthesia Complications Family History: No Family History of Anesthesia Complications Exercise Tolerance Exercise Tolerance: Metabolic Equivalents>4 Cardiac & Pulmonary Exam Cardiac Exam: Normal S1/S2 Heart Sounds Pulmonary Exam: Clear Bilateral Breath Sounds Implantable Cardiac Device Does patient have a Pacemaker or an ICD?: No Airway Exam Known Difficult Airway: No Mallampati Class: 2 Mouth Opening: Normal (> 3cm) Thyromental Distance: Less than 3 cm Neck Range of Motion: Full ROM Neck Circumference: Normal Teeth Condition: Normal Dentition ASA Classification ASA Score: ASA 2 Emergency Case?: No NPO Status NPO Status: NPO Clears >2 hours, Solids >8 hours Anesthesia Plan Resuscitation Status: Full Code Anesthesia Technique: General Anesthesia Airway Planned: Natural Airway Monitors Used: Standard Monitors Preoperative Comments:: 78 yo male for colo. Sig PMHx: HTN (losartan), vertigo, cigar, daily EtOH. Denies GERD. Appropriately NPO.
[2024-07-13 08:39] VITALS: BMI 27.3
--- NOTE | 2024-07-13 09:14 | BOWEL_PTH ---
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
[2024-07-13 09:29] VITALS: BP 114/68; PULSE 78; RESP 16; TEMP 36.6; O2SAT 97
--- NOTE | 2024-07-13 09:37 | W.ANESPOSTOP ---
Postoperative Evaluation Date, Time and Location Date Performed: 07/13/24 Time Performed: 09:37 Patient Location: Day Surgery Unit Vital Signs Most Recent Imported Vital Signs: Most Recent Vital Signs Temp Pulse Resp BP Pulse Ox 36.6 C 78 16 114/68 97 07/13/24 09:29 07/13/24 09:29 07/13/24 09:29 07/13/24 09:29 07/13/24 09:29 Pain Score Most Recent Pain Score: Most Recent Pain Score Pain Level 0 07/13/24 09:29 Assessment Mental Status: Awake (Alert & Oriented to Patient Baseline) Airway and Respiratory Function: Patent airway with normal (patient baseline) respiratory exam Cardiovascular Function: Hemodynamically Stable Hydration Status: Adequately Hydrated Nausea & Vomiting: No Nausea or Vomiting Pain: Pt. Denies Any Pain Peripheral Nerve Block: Patient did not receive a nerve block
[2024-07-13 09:59] VITALS: BP 133/85; PULSE 60; RESP 18; TEMP 36.7; O2SAT 99
== END 2024-07-13 10:36 | disposition home or self-care (01) ==
LOC: SUR 07:39
PROVIDERS: PCP Nurse Practitioner Family; Visit Provider Surgery
PROC: 0DJD8ZZ Inspection of Lower Intestinal Tract, Via Natural or Artificial Opening Endoscopic (ICD-10-PCS; CPT 45378; principal; 2024-07-13 09:00)
DX: Z12.11 Encounter for screening for malignant neoplasm of colon (principal); K63.5 Polyp of colon; I10 Essential (primary) hypertension; K57.30 Diverticulosis of large intestine without perforation or abscess without bleeding
CPT/HCPCS: 45380; 88305; J2003; J2704

== ENCOUNTER → 2024-08-03 13:13 | Outpatient (BNVA) | payer MEDICARE, OTHER, SELFPAY | PROVIDERS: PCP Nurse Practitioner Family; Referring Provider Nurse Practitioner Family; Visit Provider Podiatrist | DX: L60.3 Nail dystrophy (principal); B35.1 Tinea unguium; M21.611 Bunion of right foot; M21.612 Bunion of left foot; L84 Corns and callosities; Z87.39 Personal history of other diseases of the musculoskeletal system and connective tissue; Z98.890 Other specified postprocedural states; R09.89 Other specified symptoms and signs involving the circulatory and respiratory systems; L60.2 Onychogryphosis; L60.8 Other nail disorders; L85.8 Other specified epidermal thickening | CPT/HCPCS: 99214 ==

== ENCOUNTER 2024-09-09 01:13 | Outpatient (CLI) | payer MEDICARE, OTHER, SELFPAY ==
--- NOTE | 2024-09-09 06:45 | DI.CT_ITS ---
Exam(s) CT SINUS WO EXAM: CT SINUS WO CLINICAL HISTORY: chronic sinus pressure and throat clearing,SINUS DRAINAGE,R09.89,J34.89. Evaluate for sinusitis. TECHNIQUE: Imaging Protocol: Axial computed tomography images with coronal and sagittal reformatted images were created and reviewed. COMPARISON: No exams were available for comparison FINDINGS: Frontal sinuses: Normally aerated. Ethmoid air cells: Normally aerated. Maxillary sinuses: Minimal mucous at the floor of the right maxillary sinus. Minimal ethmoid mucosal thickening. Sphenoid sinuses: Normally aerated. Ostiomeatal complexes: Patent. Nasal cavity: Septum is midline. Visualized regional soft tissues: No acute findings. Orbits: Unremarkable. Bones: Unremarkable. Mastoid Air Cells: Normally aerated. Visualized portions of the brain: Unremarkable as visualized. IMPRESSION: Minimal mucosal thickening at the floor of the right maxillary sinus and ethmoid sinuses. RADIATION DOSE DELIVERED: Total DLP DATA REPOSITORY: All CT scans at this facility are submitted to the National Radiology Data Registry (NRDR) Dose Index Registry (DIR) with the [employer] (ACR). RADIATION OPTIMIZATION: All CT scans at this facility use at least one of these dose optimization te chniques: automated exposure control; mA and/or kV adjustment per patient size (includes targeted exa ms where dose is matched to clinical indication); or iterative reconstruction.
== END 2024-09-09 01:33 ==
PROVIDERS: PCP Nurse Practitioner Family; Visit Provider Registered Nurse Maternal Newborn
DX: R09.89 Other specified symptoms and signs involving the circulatory and respiratory systems (principal); J34.89 Other specified disorders of nose and nasal sinuses
CPT/HCPCS: 70486

== ENCOUNTER → 2024-09-14 13:51 | Outpatient (BNVA) | payer MEDICARE, OTHER, SELFPAY | PROVIDERS: PCP Nurse Practitioner Family; Referring Provider Nurse Practitioner Family; Visit Provider Podiatrist | DX: L60.3 Nail dystrophy (principal); B35.1 Tinea unguium; L84 Corns and callosities; M21.611 Bunion of right foot; M21.612 Bunion of left foot | CPT/HCPCS: 99213 ==

== ENCOUNTER 2024-09-29 12:15 | Outpatient (CLI) | payer MEDICARE, OTHER, SELFPAY ==
[2024-09-29 11:29] LABS: Uric Acid 5.3 mg/dL (3.5-7.2)
== END 2024-09-29 12:16 | disposition home or self-care (01) ==
LOC: LBO 12:17
PROVIDERS: PCP Nurse Practitioner Family; Visit Provider Nurse Practitioner Family
DX: M10.9 Gout, unspecified (principal)
CPT/HCPCS: 36415; 84550

== ENCOUNTER → 2024-10-16 08:24 | Outpatient (BNVA) | payer MEDICARE, OTHER, SELFPAY | PROVIDERS: PCP Nurse Practitioner Family; Referring Provider Nurse Practitioner Family | DX: M11.262 Other chondrocalcinosis, left knee (principal); M17.12 Unilateral primary osteoarthritis, left knee | CPT/HCPCS: 20610; 99214; J1010 ==

== ENCOUNTER → 2025-01-01 10:27 | Outpatient (BNVA) | payer MEDICARE, OTHER, SELFPAY | PROVIDERS: PCP Nurse Practitioner Family; Referring Provider Nurse Practitioner Family; Visit Provider Physician Assistant | DX: M16.11 Unilateral primary osteoarthritis, right hip (principal) | CPT/HCPCS: 20611; J1010 ==

== ENCOUNTER → 2025-03-11 08:45 | Outpatient (BNVA) | payer MEDICARE, OTHER, SELFPAY | PROVIDERS: PCP Nurse Practitioner Family; Referring Provider Nurse Practitioner Family; Visit Provider Podiatrist | DX: M77.41 Metatarsalgia, right foot (principal); M77.42 Metatarsalgia, left foot; M67.01 Short Achilles tendon (acquired), right ankle; M67.02 Short Achilles tendon (acquired), left ankle; M21.611 Bunion of right foot; M21.612 Bunion of left foot; L84 Corns and callosities; L60.3 Nail dystrophy; B35.1 Tinea unguium | CPT/HCPCS: 99213 ==

== ENCOUNTER → 2025-03-18 12:56 | Outpatient (BNVA) | payer MEDICARE, OTHER, SELFPAY | PROVIDERS: PCP Nurse Practitioner Family; Referring Provider Nurse Practitioner Family; Visit Provider Nurse Practitioner Adult Health | DX: G56.01 Carpal tunnel syndrome, right upper limb (principal) | CPT/HCPCS: 99214; 95908 ==

== ENCOUNTER → 2025-05-28 08:24 | Outpatient (BNVA) | payer MEDICARE, OTHER, SELFPAY | PROVIDERS: PCP Nurse Practitioner Family; Referring Provider Nurse Practitioner Family; Visit Provider Physician Assistant | DX: G56.01 Carpal tunnel syndrome, right upper limb (principal); M25.511 Pain in right shoulder; M54.50 Low back pain, unspecified | CPT/HCPCS: 99213 ==

== ENCOUNTER → 2025-06-07 09:40 | Outpatient (BNVA) | payer MEDICARE, OTHER, SELFPAY | PROVIDERS: PCP Nurse Practitioner Family; Referring Provider Nurse Practitioner Family; Visit Provider Physician Assistant | DX: G56.01 Carpal tunnel syndrome, right upper limb (principal) | CPT/HCPCS: 99213 ==